=== PATIENT | female | born 1995 | race American Indian/Alaskan Native ===

== ENCOUNTER 2018-06-06 18:29 | Outpatient (CLI) | payer MEDICAID ==
[2018-06-06] MEDS ORDERED: LACTATED RINGERS 1,000 ML IV ONE (20:18)
[2018-06-06 21:02] LABS: Bilirubin,Urine NEG (Negative); Blood,Urine NEG (Negative); Color,Urine Yellow (Yellow); Mucus,Urine 3+ /HPF; Protein,Urine <15 mg/dL mg/dL (Negative)
== END 2018-06-06 21:23 | disposition home or self-care (01) ==
LOC: EDSTATUS 19:31 → TRG 19:36
PROVIDERS: ATTEND Obstetrics & Gynecology
DX: O26.893 Other specified pregnancy related conditions, third trimester (principal); R10.2 Pelvic and perineal pain; Z3A.34 34 weeks gestation of pregnancy
CPT/HCPCS: 59025; 81001